=== PATIENT | male | born 1990 | race Caucasian/White ===

== ENCOUNTER 2018-01-20 20:31 | Emergency (ER) | payer BC, OTHER ==
[2018-01-20] MEDS: HYDROCODONE/APAP (10/325) TAB PO (22:12)
== END 2018-01-20 22:26 | disposition home or self-care (01) ==
LOC: FTE 20:31
DX: S61.257D Open bite of left little finger without damage to nail, subsequent encounter (principal); W54.0XXD Bitten by dog, subsequent encounter
CPT/HCPCS: 99283; Z7502